=== PATIENT | male | born 2000 | race African-American/Black ===

== ENCOUNTER 2021-03-14 22:54 | Emergency (ER) | payer OTHER, MEDICAID | END 2021-03-15 00:36 | disposition home or self-care (01) | LOC: ERS 22:54 | DX: S20.212A Contusion of left front wall of thorax, initial encounter (principal); J45.909 Unspecified asthma, uncomplicated; V86.59XA Driver of other special all-terrain or other off-road motor vehicle injured in nontraffic accident, initial encounter ==

== ENCOUNTER 2021-03-30 23:45 | Emergency (ER) | payer MEDICAID, SELFPAY ==
[2021-03-31] MEDS ORDERED: diphenhydrAMINE 50 MG/ML VIAL ONE (01:51)
[2021-03-31] MEDS ORDERED: Metoclopramide HCl 10 MG/2 ML VIAL ONE (01:51)
[2021-03-31] MEDS ORDERED: Acetaminophen 500 MG TAB ONE (01:51)
== END 2021-03-31 03:04 | disposition home or self-care (01) ==
LOC: ERS 23:45
DX: R51.9 Headache, unspecified (principal)
CPT/HCPCS: 70450; 96374; 96375; J1200; J2765

== ENCOUNTER 2021-04-10 12:38 | Emergency (ER) | payer SELFPAY ==
[2021-04-11] MEDS ORDERED: Acetaminophen 500 MG TAB ONE (12:28)
[2021-04-11] MEDS ORDERED: Ibuprofen 200 MG TAB ONE (12:28)
== END 2021-04-10 16:02 | disposition left against medical advice (07) ==
LOC: ERS 12:38
DX: Z53.21 Procedure and treatment not carried out due to patient leaving prior to being seen by health care provider (principal)

== ENCOUNTER 2021-04-11 10:44 | Emergency (ER) | payer SELFPAY ==
[2021-04-11] MEDS ORDERED: Metoclopramide HCl 10 MG/2 ML VIAL ONE (11:05)
[2021-04-11] MEDS ORDERED: levETIRAcetam in NS 100 ML ONE (11:05)
[2021-04-11 11:30] LABS: #Lymphocytes 1.7 thou/uL (1.20-3.40); #Monocytes 1.1 thou/uL (0.11-0.59); #Neutrophils 10.4 thou/uL (1.40-6.50); %Basophils 0.2 % (0.0-1.0); %Lymphocytes 12.8 % (28.0-48.0); %Monocytes 8.3 % (0.0-4.0); %Neutrophils 78.6 % (31.0-61.0); Hemoglobin 13.2 g/dL (14.0-18.0); Mean Corpuscular HGB CONC 31.9 g/dL (32.0-36.0); Mean Corpuscular Hemoglobin 28.9 pg (25.0-35.0); Mean Corpuscular Volume 90.5 fL (78.0-98.0); Mean Platelet Volume 6.6 fL (7.4-10.4); Platelet Count 591 thou/uL (130-400); RBC Distribution Width 12.7 % (11.5-14.5); Red Blood Cell (RBC) Count 4.56 mill/uL (4.00-5.20); White Blood Cell (WBC) Count 13.2 thou/uL (4.8-10.8)
[2021-04-11 11:45] LABS: ALT (SGPT) 18 U/L (8-55); AST (SGOT) 14 U/L (5-34); Albumin 4.2 g/dL (3.5-5.0); Alkaline Phosphatase 84 U/L (50-130); Anion Gap 21 mmol/L (10-20); BUN (Urea Nitrogen) 6 mg/dL (8.9-20.6); Bilirubin, Total 0.5 mg/dL (0.2-1.2); CK (CPK) 492 U/L (30-200); Calc. Creatinine Clearance 0 mL/min (70-130); Carbon Dioxide 13 mmol/L (22-29); Chloride 105 mmol/L (98-107); Glucose 140 mg/dL (70-105); Potassium 4.1 mmol/L (3.5-5.1); Protein, Total 9.2 g/dL (6.0-8.3); Sodium 135 mmol/L (136-145)
[2021-04-11 12:12] LABS: Bacteria/HPF None Seen HPF (None Seen); Bilirubin Negative (Negative); Blood, Urine 3+ (Negative); Clarity Clear (Clear); Glucose, Urine (Dipstick) Normal (Negative); Ketone, Urine Negative (Negative); Leukocyte Negative Leu/uL (Negative); Nitrite Negative (Negative); Protein, Urine (Dipstick) 200 mg/dL (Neg-Trace); RBC/HPF Greater than 50 HPF (0-3); Specific Gravity, Urine 1.032 (1.002-1.036); Squamous Epithelial 0-3 HPF (0-3); Urobilinogen Normal mg/dL (Less than 2); pH, Urine 6.5 (5.0-9.0)
[2021-04-11 12:15] LABS: Amphetamine Not Detected (NotDetected); Barbiturates Screen Not Detected (NotDetected); Benzodiazepine Screen Not Detected (NotDetected); Cocaine Metabolite Screen Not Detected (NotDetected); Medtox Control Line Valid? VALID (VALID); Medtox Reader # READER 1; Methadone Not Detected (NotDetected); Methamphetamine Not Detected (NotDetected); Opiate Screen Not Detected (NotDetected); Oxycodone Screen Not Detected (NotDetected); Phencyclidine (PCP) Not Detected (NotDetected); THC/Cannabinoid Screen Detected (NotDetected); Tricyclic Screen Not Detected (NotDetected)
== END 2021-04-11 13:10 | disposition home or self-care (01) ==
LOC: ERS 10:44
DX: R51.9 Headache, unspecified (principal); R11.11 Vomiting without nausea; F12.90 Cannabis use, unspecified, uncomplicated
CPT/HCPCS: 36415; 70450; 80053; 80306; 81003; 81015; 82550; 84146; 85025; 96365; 96375; J1953; J2765